=== PATIENT | female | born 1940 | race Caucasian/White ===

== ENCOUNTER 2022-05-01 12:39 | Emergency (ER) | payer OTHER ==
[~2022-05-01] VITALS: Ht 170.2 cm; Wt 72.8 kg
[2022-05-01] MEDS ORDERED: BIOGAIA GASTRU1 EACH (13:32)
[2022-05-01] MEDS ORDERED: SYNTHROID150 MCG (13:33)
[2022-05-01] MEDS ORDERED: BISOPROLOL-HCT1 EACH (13:33)
[2022-05-01] MEDS ORDERED: ELIQUIS5 MG (13:33)
[2022-05-01] MEDS ORDERED: [UNRECOGNIZED DRUG - OTHER] (13:34)
[2022-05-01] MEDS ORDERED: [UNRECOGNIZED DRUG - OTHER] (13:35)
== END 2022-05-01 19:12 | disposition home or self-care (01) ==
LOC: ER 12:39
DX: L03.031 Cellulitis of right toe (principal); L97.519 Non-pressure chronic ulcer of other part of right foot with unspecified severity